=== PATIENT | female | born 1980 ===

== ENCOUNTER → 2020-08-26 | Outpatient (CLI) | payer BC, OTHER | LOC: HEART CORB 12:54 | DX: I10 Essential (primary) hypertension (principal); R07.2 Precordial pain; R06.02 Shortness of breath; I34.0 Nonrheumatic mitral (valve) insufficiency; I07.1 Rheumatic tricuspid insufficiency; I35.1 Nonrheumatic aortic (valve) insufficiency | CPT/HCPCS: 93306 ==